=== PATIENT | female | born 1965 | race Two or more races ===

== ENCOUNTER → 2017-08-21 | Outpatient (CLI) | payer OTHER | LOC: BRMIMAGING 15:17 | PROVIDERS: ATTEND Family Medicine | DX: Z12.31 Encounter for screening mammogram for malignant neoplasm of breast (principal) | CPT/HCPCS: G0202 ==

== ENCOUNTER → 2018-09-09 | Outpatient (CLI) | payer OTHER | END | disposition home or self-care (01) | LOC: CIMAGING 12:05 | PROVIDERS: ATTEND Family Medicine | DX: Z12.31 Encounter for screening mammogram for malignant neoplasm of breast (principal) ==

== ENCOUNTER → 2018-09-30 | Outpatient (CLI) | payer OTHER | LOC: BRMIMAGING 09:25 | PROVIDERS: ATTEND Family Medicine | DX: R92.8 Other abnormal and inconclusive findings on diagnostic imaging of breast (principal) | CPT/HCPCS: 76641-PO ==